=== PATIENT | female | born 1955 | race Caucasian/White ===

== ENCOUNTER 2016-06-26 15:22 | Emergency (ER) | payer OTHER ==
[2016-06-26 15:31] VITALS: BP 153/94; PULSE 101; RESP 18; TEMP 97.9; O2SAT 95
--- NOTE | 2016-06-26 16:01 | EDPHY ---
H & P Time Seen by Provider: 06/26/16 15:52 HPI/ROS: CHIEF COMPLAINT: Left leg pain HISTORY OF PRESENT ILLNESS: This patient is a 61 year old female who presents to the Emergency Department complaining of acute atraumatic upper left leg pain beginning yesterday afternoon and persisting to the present. She called a local Urgent Care Clinic and was referred to the ED for suspicion of possible blood clot. She describes her pain as constant and localized to the anterior and lateral aspects of her upper left leg without any radiation. She has been treating the pain with regular doses of 800mg Ibuprofen with only mild alleviation of her pain. She has no additional complaints. She denies fever or chills, lower back pain, or paresthesias. No pertinent medical history. Past Medical/Surgical History: Denies. Social History: Never smoked. Smoking Status: Never smoked Physical Exam: General Appearance: Alert, no distress Neurological: A&O, nonfocal, normal gait Skin: Warm and dry, no rash Extremities: Tenderness over the lateral aspect of the upper left leg centered over the thigh and radiating inferiorly to the knee, no calf tenderness, no swelling Psychiatric: Mood and affect normal Constitutional: Initial Vital Signs Temperature (C) 36.6 C 06/26/16 15:22 Heart Rate 101 H 06/26/16 15:22 Respiratory Rate 18 06/26/16 15:22 Blood Pressure 153/94 H 06/26/16 15:22 O2 Sat (%) 95 06/26/16 15:22 O2 Delivery Mode Room Air Allergies/Adverse Reactions: blueberry Allergy (Verified 11/28/14 23:05) gluten Allergy (Verified 06/26/16 15:25) melon Allergy (Verified 06/26/16 15:25) nut - unspecified Allergy (Verified 06/26/16 15:25) soy Allergy (Verified 06/26/16 15:25) sunflower seed Allergy (Verified 06/26/16 15:25) Home Medications: Medication Instructions Recorded VALSARTAN/HYDROCHLOROTHIAZIDE 1 each PO DAILY 04/02/12 [Diovan Hct 160-12.5 Mg Tab] Ibuprofen 800 mg PO Q6H PRN #30 tablet 06/26/16 Medical Decision Making ED Course/Re-evaluation: I discussed with the patient my suspicion that she is experiencing IT band syndrome. I explained to her that my suspicion of blood clot is low given the localization of her pain and lack of swelling. She is relieved. I discussed with her my recommendation that she treat her pain with Ibuprofen and follow-up with her PCP if her symptoms do not improve. She is agreeable to this and will be discharged home in good condition. Departure - Departure Disposition: Home, Routine, Self-Care Clinical Impression: Iliotibial band syndrome of left side Condition: Good Instructions: Muscle Strain (ED) Additional Instructions: 1. Take 800mg Ibuprofen every 6 hours with food. 2. Follow-up with your primary care provider if your symptoms do not resolve in 3-5 days. 3. Return to the Emergency Department if you experience increased pain or swelling, red streaking to your leg, numbness or tingling to your foot or toes, low back pain, or other serious concerns. Referrals: Dara Monsivais MD [Primary Care Provider] - As per Instructions Prescriptions: Ibuprofen 800 mg PO Q6H PRN #30 tablet PRN Reason: pain Report Scribed for: Susan Ansari Report Scribed by: Subah Miller Date of Report: 06/26/16 Time of Report: 15:56 Physician Review and Approval Statement: 06/26/16 15:56 Portions of this note were transcribed by a nuclear medical technologist. I personally performed a history, physical exam, medical decision making, and confirmed accuracy of information the transcribed note.
== END 2016-06-26 16:33 | disposition home or self-care (01) ==
DX: M76.32 Iliotibial band syndrome, left leg (principal)

== ENCOUNTER → 2017-03-04 | Outpatient (CLI) | payer OTHER | LOC: FIMAGING 15:19 | PROVIDERS: ATTEND Internal Medicine | DX: Z12.31 Encounter for screening mammogram for malignant neoplasm of breast (principal) | CPT/HCPCS: G0202 ==

== ENCOUNTER → 2017-03-28 | Outpatient (CLI) | payer OTHER | LOC: BMCIMAGING 13:07 | PROVIDERS: ATTEND Internal Medicine | DX: R10.11 Right upper quadrant pain (principal) ==

== ENCOUNTER 2017-10-23 19:18 | Emergency (ER) | payer OTHER ==
[2017-10-23] MEDS ORDERED: methylPREDNISolone SOD SUCC 125 MG/2 ML VIAL IVP ONE (19:29)
[2017-10-23] MEDS ORDERED: RANITIDINE 50 MG/2 ML VIAL IV ONE (19:29)
[2017-10-23] MEDS ORDERED: NS 1,000 ML IV ONE (19:33)
--- NOTE | 2017-10-23 19:34 | EDPHY ---
H & P Time Seen by Provider: 10/23/17 19:28 HPI/ROS: CHIEF COMPLAINT: Swollen throat HISTORY OF PRESENT ILLNESS: The patient has had several previous ED visits for anaphylaxis, she has been tested for food allergies and was allergic to everything tested except for Morgan seeds. She presents tonight after having had allergic symptoms at 6:45 p.m. After eating dinner which was chicken and potatoes. She started feeling some swelling in her throat difficulty breathing and change in her voice and gave herself the EpiPen at home. The symptoms currently are mild to moderate. There are little better after the EpiPen but are not gone. Not associated with urticaria or abdominal cramping or vomiting. Started just after eating as noted above. REVIEW OF SYSTEMS: Eye: no change in vision ENT: HPI Cardiac: no chest pain or syncope Pulmonary: no cough or SOB Abdomen: no vomiting, diarrhea, abdominal pain Musculoskeletal: no back pain Skin: no rash Neuro: no headache Constitutional: no fever : no urinary symptoms A comprehensive 10 point review of systems is otherwise negative aside from elements mentioned in the history of present illness. PAST MEDICAL HISTORY: Previous allergic reaction as above, asthma, hypertension Social history: Nonsmoker General Appearance: Alert and conversant, cooperative. Eyes: No scleral icterus. ENT, Mouth: Uvular swelling and slightly muffled voice but no tongue swelling and no stridor or drooling. Respiratory: Normal respiratory effort, breath sounds equal, lungs are clear to auscultation. No wheezing. Cardiovascular: Regular rate and rhythm. Gastrointestinal: Abdomen is soft and non tender. Neurological: Alert, face symmetric, normal motor and sensory in extremities. Skin: No urticaria. Musculoskeletal: No peripheral edema. Psychiatric: Not agitated. Emergency Department course/MDM: Solu-Medrol 125, Benadryl 50, other antihistamine. ED observation. She does have an additional EpiPen at home. 2130: Patient feels better, has normal voice now, uvula is less well, she wants to go home which I think is reasonable. Smoking Status: Never smoked Constitutional: Initial Vital Signs Temperature (C) 36.8 C 10/23/17 19:24 Heart Rate 76 10/23/17 19:24 Respiratory Rate 18 10/23/17 19:24 Blood Pressure 187/96 H 10/23/17 19:24 O2 Sat (%) 97 10/23/17 19:24 O2 Delivery Mode Room Air Allergies/Adverse Reactions: blueberry Allergy (Verified 11/28/14 23:05) gluten Allergy (Verified 06/26/16 15:25) melon Allergy (Verified 06/26/16 15:25) nut - unspecified Allergy (Verified 06/26/16 15:25) soy Allergy (Verified 06/26/16 15:25) sunflower seed Allergy (Verified 06/26/16 15:25) Home Medications: Medication Instructions Recorded VALSARTAN/HYDROCHLOROTHIAZIDE 1 each PO DAILY 04/02/12 [Diovan Hct 160-12.5 Mg Tab] Ibuprofen 800 mg PO Q6H PRN #30 tablet 06/26/16 Famotidine [Pepcid] 20 mg PO BID #6 tab 10/23/17 predniSONE 10 mg PO AD #15 tab 10/23/17 Medical Decision Making Differential Diagnosis: The differential for swollen throw considered including but not limited to retropharyngeal abscess, epiglottitis, medication related angioedema, anaphylaxis. - Data Points Medications Given: Discontinued Medications Diphenhydramine HCl (Benadryl Injection) 50 mg IVP EDNOW ONE Stop: 10/23/17 19:30 Last Admin: 10/23/17 19:36 Dose: 50 mg Sodium Chloride (Ns) 1,000 mls @ 0 mls/hr IV ONCE ONE; Wide Open PRN Reason: Protocol Stop: 10/23/17 19:34 Last Admin: 10/23/17 19:36 Dose: 1,000 mls Methylprednisolone Sodium Succinate (Solu-Medrol) 125 mg IVP EDNOW ONE Stop: 10/23/17 19:30 Last Admin: 10/23/17 19:36 Dose: 125 mg Ranitidine HCl (Zantac) 50 mg IV EDNOW ONE Stop: 10/23/17 19:30 Last Admin: 10/23/17 19:36 Dose: 50 mg Departure - Departure Disposition: Home, Routine, Self-Care Clinical Impression: Anaphylaxis Qualifiers: Encounter type: initial encounter Qualified Code(s): T78.2XXA - Anaphylactic shock, unspecified, initial encounter Condition: Good Instructions: Food Allergy (ED), Anaphylaxis (ED) Referrals: Dara Monsivais MD [Primary Care Provider] - As per Instructions Alicia Clements MD [[facility] [place] [facility] [place] - As per Instructions (Call tomorrow to arrange appropriate follow-up with your electrical intern.) Prescriptions: Famotidine [Pepcid] 20 mg PO BID #6 tab predniSONE 10 mg PO AD #15 tab
[2017-10-23 21:35] VITALS: BP 162/94
== END 2017-10-23 21:33 | disposition home or self-care (01) ==
DX: T78.2XXA Anaphylactic shock, unspecified, initial encounter (principal); J45.909 Unspecified asthma, uncomplicated; I10 Essential (primary) hypertension; E86.9 Volume depletion, unspecified
CPT/HCPCS: 96374

== ENCOUNTER → 2018-05-26 | Outpatient (CLI) | payer OTHER | LOC: FIMAGING 14:17 | PROVIDERS: ATTEND Obstetrics & Gynecology | DX: Z12.31 Encounter for screening mammogram for malignant neoplasm of breast (principal) ==

== ENCOUNTER → 2018-06-07 | Outpatient (CLI) | payer OTHER | LOC: FIMAGING 08:50 | PROVIDERS: ATTEND Internal Medicine | DX: M51.36 Other intervertebral disc degeneration, lumbar region (principal) ==